=== PATIENT | male | born 1960 | race Caucasian/White ===

== ENCOUNTER → 2017-07-23 | Day surgery (SDC) | payer OTHER ==
[~2017-07-23] VITALS: Ht 180.3 cm; Wt 81.6 kg
--- NOTE | 2017-07-23 14:22 | Operative Report ---
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 MRI shows it to be a 22 cm intramuscular diagnosis likely lipoma. the risks which included but were not limited to numbness temporarily or permanently in the hand fingers are arms. We talked about the risk of recurrence injury to nerves of the upper arm possibly blood vessels. We talked about recurrence definitely visible scarring possibly unsightly or symptomatic as well as hematoma and seroma. Once agreed informed consent was signed. He was taken to the operating room placed supine on the table Venodyne boots are placed and then general anesthesia was established intravenous antibiotics were given. Admitted arm incision was placed through the skin and subcutaneous tissue. Soft tissue mass was identified quickly and was found to be intramuscular. He was dissected free bluntly preserving all crossing neurovascular structures. Was made hemostatic with gentle use of coronary only were needed. It was irrigated throughout to be hemostatic and then closed in 3 layers. Soft tissue mass which measured 22 cm in overall length.
== END ==
LOC: STS 02:25
DX: D21.12 Benign neoplasm of connective and other soft tissue of left upper limb, including shoulder (principal); I49.49 Other premature depolarization
CPT/HCPCS: 88305; J0690; J2250